=== PATIENT | female | born 1990 | race Hispanic/Latino ===

== ENCOUNTER 2019-08-01 08:18 | Emergency (ER) | payer SELFPAY ==
[2019-08-01] MEDS ORDERED: ONDANSETRON 4 MG/2 ML VIAL ONE (08:59)
[2019-08-01] MEDS ORDERED: MORPHINE 2 MG/ML SYR ONE (08:59)
[2019-08-01 09:10] LABS: Absolute Lymphocytes (CBC) 2.1 K/uL (0.7-4.9); Basophils % 0.6 % (0-1.3); Hematocrit 39.6 % (36.0-45.0); Lymphocytes % 17.2 % (15.3-44.8); RBC Red Blood Cell Count 4.56 M/uL (3.86-4.86)
--- NOTE | 2019-08-01 09:41 | RAD REPORT ---
EXAM DESCRIPTION: CT - Facial Bones W Con Mpr - 08/01/2019 9:15 am CLINICAL HISTORY: Right-sided facial pain and swelling, possible tooth infection COMPARISON: None. TECHNIQUE: Axial 3 mm thick images of the paranasal sinuses were obtained. Coronal reformatted image s were reviewed. All CT scans are performed using dose optimization technique as appropriate and may include automated exposure control or mA/KV adjustment according to patient size. FINDINGS: Dental decay is present in the posterior right molars. There is lucency around the roots o f involve molar with thinning and probable disruption of the lateral cortex of the mandible. Left mol ar dental decay is evident without bone involvement. Edematous changes are present in the soft tissue s adjacent to the involved right molar. No abscess or drainable fluid collection. No abnormal air in the soft tissues. No abnormal lymphadenopathy. No globe or orbital content abnormality. The parotid and submandibular glands are unremarkable. No ph aryngeal abnormality seen. No tonsil or tongue base abnormality seen. IMPRESSION: Dental decay is present in the right first molar of the mandible. There is lucency aroun d the roots of this molar and disruption of the lateral cortical wall of the mandible. Edema and stranding are present in the soft tissues adjacent to the involved molar. No abscess or clinton inable fluid collection.
--- NOTE | 2019-08-01 09:43 | RAD REPORT ---
EXAM DESCRIPTION: CT - Soft Tissue Neck W/Contr - 08/01/2019 9:15 am CLINICAL HISTORY: jaw swelling COMPARISON: No comparisons TECHNIQUE: During dynamic enhancement using 100 milliliters nonionic IV contrast, axial 5 millimeter thick images of the neck were obtained. All CT scans are performed using dose optimization technique as appropriate and may include automated exposure control or mA/KV adjustment according to patient size. FINDINGS: Intracranial portion of the exam is unremarkable. Globes and orbits are mostly obscured. M astoid air cells are clear. Partially imaged paranasal sinuses are clear. No pharyngeal mucosal mass or asymmetry. No tonsillar or tongue base abnormality. Epiglottis and voca l cords are normal. The parotid, submandibular and thyroid gland tissues are normal. Small reactive t ype nodes are seen in the right-side neck soft tissues. Dental decay is evident in the posterior right molars. These findings are detailed on separate report . IMPRESSION: Soft tissue neck examination shows no significant or suspicious finding. Right mandible dental decay findings are detailed in separate report.
--- NOTE | 2019-08-01 09:55 | ER ---
Nurse's Notes [facility] Name: Shereen Murphy Age: 28 yrs Sex: Female : 1990 Arrival Date: 08/01/2019 Time: 08:22 Bed 14 Private MD: Diagnosis: Dental caries Presentation: 07/31 08:35 Chief complaint: Right sided facial swelling and pain x 3 days. Coronavirus screen: hb Proceed with normal triage. Ebola Screen: No symptoms or risks identified at this time. Initial Sepsis Screen: Does the patient meet any 2 criteria? No. Patient's initial sepsis screen is negative. Does the patient have a suspected source of infection? No. Patient's initial sepsis screen is negative. Risk Assessment: Do you want to hurt yourself or someone else? Patient reports no desire to harm self or others. Onset of symptoms was July 30, 2019. 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 - Social history:: Smoking status: Patient reports the use of cigarette tobacco products, denies chronic smoking, but will smoke occasionally. Screenin:37 Abuse screen: Denies threats or abuse. Denies injuries from another. Nutritional hb screening: No deficits noted. Tuberculosis screening: No symptoms or risk factors identified. Fall Risk None identified. Assessment: 08:55 General: Appears in no apparent distress. uncomfortable, well groomed, well developed, sv Behavior is calm, cooperative, appropriate for age. Pain: Complains of pain in right cheek and right mandible Pain currently is 8 out of 10 on a pain scale. Quality of pain is described as tender, throbbing, Is continuous. Neuro: Level of Consciousness is awake, alert, obeys commands, Oriented to person, place, time, situation, Moves all extremities. Full function Gait is steady, Speech is normal. Respiratory: Airway is patent Respiratory effort is even, unlabored, Respiratory pattern is regular, symmetrical. Derm: Skin is intact, Skin is pink, warm \T\ dry. Musculoskeletal: Range of motion: intact in all extremities, Swelling present in right cheek and right mandible. 09:46 Reassessment: Patient appears in no apparent distress at this time. No changes from sv previously documented assessment. Patient and/or family updated on plan of care and expected duration. Pain level reassessed. Patient is alert, oriented x 3, equal unlabored respirations, skin warm/dry/pink. 10:35 Reassessment: Patient appears in no apparent distress at this time. No changes from sv previously documented assessment. Patient and/or family updated on plan of care and expected duration. Pain level reassessed. Patient is alert, oriented x 3, equal unlabored respirations, skin warm/dry/pink. Vital Signs: 08:35 BP 142 / 86; Pulse 80; Resp 16; Temp 98; Pulse Ox 99% ; Weight 90.72 kg; Height 4 ft. 9 hb in. (144.78 cm); Pain 8/10; 09:45 BP 143 / 83; Pulse 79; Resp 16; Pulse Ox 100% ; sv 10:30 BP 137 / 80; Pulse 77; Resp 16; Pulse Ox 99% ; sv 08:35 Body Mass Index 43.28 (90.72 kg, 144.78 cm) hb ED Course: 08:22 Patient arrived in ED. as 08:25 Primo Navarro PA is PHCP. jmm 08:25 John Hunt MD is Attending Physician. jmm 08:31 Lindsay Hinson, ANTELMO is Primary Nurse. sv 08:36 Triage completed. hb 08:36 Arm band placed on. hb 08:37 Patient has correct armband on for positive identification. Bed in low position. Call light in reach. 09:00 Inserted saline lock: 20 gauge in right forearm, using aseptic technique. Blood sv collected. Flushed right forearm with 5 ml normal saline. 09:22 CT Facial Bones W/ Con \T\ Mpr In Process Unspecified. EDMS 09:22 Soft Tissue Neck W/Contr CT In Process Unspecified. EDMS 10:35 No provider procedures requiring assistance completed. IV discontinued, intact, sv bleeding controlled, No redness/swelling at site. Pressure dressing applied. Administered Medications: 09:00 Drug: Zofran (Ondansetron) 4 mg Route: IVP; Site: right forearm; sv 10:00 Follow up: Response: No adverse reaction sv 09:02 Drug: morphine 2 mg Route: IVP; Site: right forearm; sv 10:00 Follow up: Response: No adverse reaction; Marked relief of symptoms; Pain is decreased; sv RASS: Alert and Calm (0) Outcome: 09:54 Discharge ordered by MD. livingston 10:35 Patient left the ED. hb 10:35 Discharged to home ambulatory. sv 10:35 Condition: stable 10:35 Discharge instructions given to patient, Instructed on discharge instructions, follow up and referral plans. medication usage, Demonstrated understanding of instructions, follow-up care, medications, Prescriptions given X 2. Signatures: Dispatcher [employer] Lindsay Spangler, RN RN Primo Mejia PA PA jmm Martinez, Amelia as Baxter, Heather, RN RN
--- NOTE | 2019-08-01 09:55 | EDPHYS ---
Physician Documentation [facility] Name: Shereen Murphy Age: 28 yrs Sex: Female : 1990 Arrival Date: 08/01/2019 Time: 08:22 Bed 14 Private MD: John Vyas HPI: 07/31 08:28 This 28 yrs old Female presents to ER via Ambulatory with complaints of Facial jmm Swelling. 08:28 The patient presents with pain, swelling. Onset: The symptoms/episode began/occurred jmm gradually, 3 day(s) ago. Duration: The symptoms are continuous. Modifying factors: The symptoms are alleviated by nothing, the symptoms are aggravated by nothing. Associated signs and symptoms: Pertinent positives: pain, swelling, Pertinent negatives: fever. The patient has experienced a previous episode. 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 - Social history:: Smoking status: Patient reports the use of cigarette tobacco products, denies chronic smoking, but will smoke occasionally. ROS: 08:28 Constitutional: Negative for fever, chills, and weight loss, Cardiovascular: Negative jmm for chest pain, palpitations, and edema, Respiratory: Negative for shortness of breath, cough, wheezing, and pleuritic chest pain. 08:28 ENT: Positive for dental pain. 08:28 All other systems are negative. Exam: 08:28 Constitutional: This is a well developed, well nourished patient who is awake, alert, jmm and in no acute distress. 08:28 Eyes: EOMI, no conjunctival erythema appreciated ENT: Moist Mucus Membranes Neck: Trachea midline, Supple Chest/axilla: Normal chest wall appearance and motion. Cardiovascular: Regular rate and rhythm. No edema appreciated Respiratory: Normal respirations, no respiratory distress appreciated Abdomen/GI: Non distended, soft Back: Normal ROM Skin: General appearance color normal MS/ Extremity: Moves all extremities, no obvious deformities appreciated, no edema noted to the lower extremities Neuro: Awake and alert, normal gait Psych: Behavior is normal, Mood is normal, Patient is cooperative and pleasant 08:28 Head/face: Noted is diffuse right sided facial pain on palpation. Vital Signs: 08:35 BP 142 / 86; Pulse 80; Resp 16; Temp 98; Pulse Ox 99% ; Weight 90.72 kg; Height 4 ft. 9 hb in. (144.78 cm); Pain 8/10; 09:45 BP 143 / 83; Pulse 79; Resp 16; Pulse Ox 100% ; sv 10:30 BP 137 / 80; Pulse 77; Resp 16; Pulse Ox 99% ; sv 08:35 Body Mass Index 43.28 (90.72 kg, 144.78 cm) hb MDM: 08:28 Patient medically screened. andrew 09:53 Data reviewed: vital signs, nurses notes. Counseling: I had a detailed discussion with yara the patient and/or guardian regarding: the historical points, exam findings, and any diagnostic results supporting the discharge/admit diagnosis, lab results, the need for outpatient follow up, to return to the emergency department if symptoms worsen or persist or if there are any questions or concerns that arise at home. ED course: imaging studies negative. patient is advised to follow up with dentist for reevaluation. patient is otherwise given strict return precautions. patient understood and agrees with the plan of care. . 07/31 08:38 Order name: CBC with Diff; Complete Time: 09:18 [facility] 07/31 08:38 Order name: CT Facial Bones W/ Con \T\ Mpr; Complete Time: 09:49 [facility] 07/31 08:38 Order name: Soft Tissue Neck W/Contr CT; Complete Time: 09:49 [facility] 07/31 08:38 Order name: Urine Test (obtain specimen); Complete Time: 08:49 [facility] 07/31 08:38 Order name: Saline Lock; Complete Time: 09:05 [facility] Administered Medications: 09:00 Drug: Zofran (Ondansetron) 4 mg Route: IVP; Site: right forearm; sv 10:00 Follow up: Response: No adverse reaction sv 09:02 Drug: morphine 2 mg Route: IVP; Site: right forearm; sv 10:00 Follow up: Response: No adverse reaction; Marked relief of symptoms; Pain is decreased; sv RASS: Alert and Calm (0) Disposition: 15:43 Co-signature as Attending Physician, John Hunt MD I agree with the assessment and [facility] plan of care. Disposition: 08/01/19 09:54 Discharged to Home. Impression: Dental caries. - Condition is Stable. - Discharge Instructions: Dental Pain. - Prescriptions for Amoxicillin 875 mg Oral Tablet - take 1 tablet by ORAL route every 12 hours for 10 days; 20 tablet. Ultracet 37.5- 325 mg Oral Tablet - take 1 tablet by ORAL route every 6 hours - for up to 5 days; do not exceed 8 tablets per day.; 12 tablet. - Work release form, Medication Reconciliation Form, Thank You Letter, Antibiotic Education, Prescription Opioid Use form. - Follow up: Private Physician; When: 2 - 3 days; Reason: Recheck today's complaints, Continuance of care, Re-evaluation by your physician. Signatures: Dispatcher [employer] Lindsay Spangler, RN John Abernathy MD MD cha Mickail, Joel, PA PA Melva Kessler RN RN hb Corrections: (The following items were deleted from the chart) 10:35 09:54 08/01/2019 09:54 Discharged to Home. Impression: Dental caries. Condition is hb Stable. Forms are Medication Reconciliation Form, Thank You Letter, Antibiotic Education, Prescription Opioid Use. Follow up: Private Physician; When: 2 - 3 days; Reason: Recheck today's complaints, Continuance of care, Re-evaluation by your physician. yara
[2019-08-01 10:49] VITALS: TEMP 98
[2019-08-01 10:51] VITALS: BP 143/83; O2SAT 100
== END 2019-08-01 10:35 | disposition home or self-care (01) ==
LOC: ER 08:18
DX: K02.9 Dental caries, unspecified (principal); F17.210 Nicotine dependence, cigarettes, uncomplicated
CPT/HCPCS: 36415; 70487; 70491; 76377; 85025; 96374; 96375; 99284; J2270; J2405; Q9967

== ENCOUNTER 2021-11-01 07:39 | Emergency (ER) | payer OTHER, SELFPAY ==
--- OUTSIDE RECORDS SUMMARY | 2021-11-01 07:43 | XMS REPORT | Continuity of Care Document ---
:1990 Author Organization [facility] t Address [address] [place] [address] Care Team Providers Name Role Phone Pcp, Patient Does Not Have A Primary Care Physician [id number] SYSTEM, PROVIDER NOT IN Attending Clinician Unavailable Kaylyn Farrell PA-C Attending Clinician Melly Nuñez PA-C Attending Clinician MELLY NUÑEZ Attending Clinician Unavailable GULSHAN AZUL Attending Clinician Unavailable GULSHAN AZUL Attending Clinician Unavailable Payers Payer Name Policy Type Policy Number Effective Date Expiration Date S ource Problems Condition Condition Condition Status Onset Resolution Last Treating Co mments Source Name Details Category Date Date Treatment Clinician Date Vaginal Vaginal Disease Active Univers bleeding bleeding 5-01 ity of 00:00: [place] 00 Medical Branch ALIS III ALIS III Disease Active Overview: Univ ers (cervical (cervical 3-30 Formattin i ty of intraepith intraepith 00:00: g of this [place] elial elial 00 note Medical neoplasia neoplasia might be Br anch grade III) grade III) different with with from the severe severe original. 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 ICD10 Diagnosis Term Media Assistant Utility Morbid Morbid Disease Active Univers obesity obesity ity of [facility] [place] [facility] Allergies, Adverse Reactions, Alerts Allergy Allergy Status Severity Reaction(s) Onset Inactive Treating Comm ents Source Name Type Date Date Clinician Aspirin Propensi Active Hives Univers ty to 3-20 ity of adverse 00:00: [place] reaction 00 Medical s Branch ASPIRIN DRUG Active Hives Univers INGREDI 3-20 ity of 00:00: [place] 00 Medical Branch Social History Social Habit Start Date Stop Date Quantity Comments Source History SDOH University o f Alcohol Frequency [place] M edical [facility] History SDOH University o f Alcohol Std [place] Medical Drinks Branch History SDOH University o f Alcohol Binge [place] [facility] al Branch History of Cigarette Smoker Universi ty of tobacco use [facility] [place] [facility] Exposure to 2021-06-05 2021-06-15 Not sure University of SARS-CoV-2 00:00:00 11:55:00 [facility] (event) Branch Tobacco Comment 2021-06-15 2021-06-15 quit 1 years ago Uni versity of 00:00:00 00:00:00 [facility] Alcohol intake 2021-06-15 2021-06-15 Current drinker Unive rsity of 00:00:00 00:00:00 of alcohol [facility] (finding) Branch Tobacco use and 2021-05-06 2021-05-06 Never used Universit y of exposure 00:00:00 00:00:00 [facility] Alcohol Comment 2012-05-30 2012-05-30 social drinking Univ ersity of 00:00:00 00:00:00 [facility] Sex Ass[birth year] Universit y of 00:00:00 00:00:00 [facility] Smoking Status Start Date Stop Date Source Former smoker 2021-05-06 00:00:00 2021-05-06 00:00:00 [facility] Medications Ordered Filled Start Stop Current Ordering Indication Dosage Frequency Signature Comments Components Source Medication Medication Date Date Medication? Clinician (SIG) Name Name ibuprofen Yes [id number] 600mg Take 1 Univers 600 mg 4-20 9102 tablet by ity of tablet 00:00: mouth [place] 00 every 6 Medical (six) Branch hours as needed for Pain (scale 4-6). ibuprofen Yes [id number] 600mg Take 1 Univers 600 mg 4-20 9102 tablet by ity of tablet 00:00: mouth [place] 00 every 6 Medical (six) Branch hours as needed for Pain (scale 4-6). ibuprofen Yes [id number] 600mg Take 1 Univers 600 mg 4-20 9102 tablet by ity of tablet 00:00: mouth [place] 00 every 6 Medical (six) Branch hours as needed for Pain (scale 4-6). Immunizations Ordered Filled Immunization Date Status Comments Sour e Immunization Name Name TDAP 2012-02-29 Completed University of 00:00:00 [facility] [place] [facility] TDAP 2012-02-29 Completed University of 00:00:00 [facility] [place] [facility] TDAP 2012-02-29 Completed University of 00:00:00 [facility] 2006-05-07 Completed University of 00:00:00 [facility] 2006-05-07 Completed University of 00:00:00 [facility] 2006-05[facility]07 [facility]00 [facility] [place] [facility] Procedures This patient has no known procedures. Encounters Start End Encounter Admission Attending Care Care Encounter Source Date/Time Date/Time Type Type Clinicians Facility Department ID 2021-05-15 Outpatient SYSTEM, [facility] [id number] 10:06:32 PROVIDER Richard o n 2021-07-30 2021-07-30 Telemedici Kaylyn Farrell [facility] [id number] Univers 11:45:00 12:00:00 ne Visit Melly Nuñez [facility] [id number] ity of [id number] [id number] [facility] 096 Branch 2021-07-30 2021-07-30 Outpatient R SAVANNAH [facility] [id number] Univers 11:45:00 11:45:00 MELLY gail [facility] 2021-07-30 2021-07-30 Telephone JOSEY Farrell [id number] Univers 00:00:00 00:00:00 Kaylyn [facility] [id number] i ty [id number] [id number] [address] 2021-07-08 2021-07-08 Outpatient GULSHAN AARON [facility] [id number] Univers 11:00:00 11:00:00 GULSHAN AZUL [facility] 2021-07-08 2021-07-08 Telephone RICKIE Nuñez [id number] Univers 00:00:00 00:00:00 Melly HE[facility] [id number] i [id number] [id number] [address] Results This patient has no known results.
[2021-11-01 08:13] LABS: Urine Blood Negative (Negative); Urine Glucose 1+ (Negative); Urine Protein 1+ (Negative); Urine Specific Gravity >=1.030 (1.005-1.030); Urine pH 5.5 (5.0-7.0)
--- NOTE | 2021-11-01 10:11 | RAD REPORT ---
EXAM DESCRIPTION: Luis Single View11/01/2021 9:03 am CLINICAL HISTORY: cough COMPARISON: none FINDINGS: The lungs appear clear of acute infiltrate. The heart is normal size IMPRESSION: No acute abnormalities displayed
--- NOTE | 2021-11-01 10:18 | ER ---
Nurse's Notes [facility] Name: Shereen Murphy Age: 30 yrs Sex: Female : 1990 Arrival Date: 11/01/2021 Time: 07:42 Bed 13 Private MD: Diagnosis: Acute bronchitis, unspecified Presentation: 11/01 07:46 Chief complaint: Patient states: cough, headache, SOB, congestion, started yesterday , iw no fever. Coronavirus screen: Client presents with at least one sign or symptom that may indicate coronavirus-19. Ebola Screen: Patient negative for fever greater than or equal to 101.5 degrees Fahrenheit, and additional compatible Ebola Virus Disease symptoms Patient denies exposure to infectious person. Patient denies travel to an Ebola-affected area in the 21 days before illness onset. No symptoms or risks identified at this time. Risk Assessment: Do you want to hurt yourself or someone else? Patient reports no desire to harm self or others. Onset of symptoms was October 31, 2021. 07:46 Method Of Arrival: Ambulatory iw 07:46 Acuity: CARLY 3 iw 08:00 Initial Sepsis Screen: Does the patient meet any 2 criteria? No. Patient's initial iw sepsis screen is negative. Does the patient have a suspected source of infection? No. Patient's initial sepsis screen is negative. Triage Assessment: 07:50 General: Appears in no apparent distress. uncomfortable, obese, Behavior is calm, bp cooperative, appropriate for age. Pain: Complains of pain in face. EENT: Nares with drainage noted Reports nasal congestion. Neuro: No deficits noted. Cardiovascular: No deficits noted. Respiratory: Reports shortness of breath cough that is Onset: The symptoms/episode began/occurred at an unknown time. the patient has mild shortness of breath. GI: No signs and/or symptoms were reported involving the gastrointestinal system. : No signs and/or symptoms were reported regarding the genitourinary system. Derm: No deficits noted. Musculoskeletal: No deficits noted. 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 - Social history:: Smoking status: unknown. Screenin:00 Abuse screen: Denies threats or abuse. Denies injuries from another. Nutritional bp screening: No deficits noted. Tuberculosis screening: No symptoms or risk factors identified. Fall Risk None identified. Assessment: 07:50 General: SEE TRIAGE NOTE. bp 09:00 Cardiovascular: Rhythm is sinus rhythm. Respiratory: Airway is patent Respiratory bp effort is even, unlabored, Breath sounds are clear bilaterally. 10:00 Reassessment: No changes from previously documented assessment. Patient and/or family bp updated on plan of care and expected duration. Pain level reassessed. Vital Signs: 07:48 BP 157 / 94; Pulse 99; Resp 16; Temp 97.6; Pulse Ox 99% on R/A; Weight 103.87 kg; bp Height 4 ft. 10 in. (147.32 cm); 10:00 BP 138 / 77; Pulse 89; Resp 16; Pulse Ox 98% ; bp 07:48 Body Mass Index 47.86 (103.87 kg, 147.32 cm) bp ED Course: 07:42 Patient arrived in ED. as 07:42 Lindsay Leon MD is Attending Physician. sd2 07:47 Triage completed. iw 07:48 Arm band placed on. iw 07:51 Jose A Mcmillan, RN is Primary Nurse. bp 08:00 Patient has correct armband on for positive identification. Bed in low position. Call bp light in reach. Side rails up X2. 09:05 CXR XRAY In Process Unspecified. EDMS 10:51 No provider procedures requiring assistance completed. Patient did not have IV access iw during this emergency room visit. Administered Medications: No medications were administered Medication: 10:52 VIS not applicable for this client. iw Outcome: 10:17 Discharge ordered by . sd2 10:50 Condition: good iw 10:51 Discharged to home ambulatory. iw 10:51 Discharge instructions given to patient, Instructed on discharge instructions, follow up and referral plans. Demonstrated understanding of instructions, follow-up care, medications, Prescriptions given X 4. 10:52 Patient left the ED. iw Signatures: Dispatcher [employer] EDMS Lisa Hodgson Irene, RN RN iw Jose A Mcmillan, Lindsay Vaughn RN, MD MD sd2 Corrections: (The following items were deleted from the chart) 07:55 07:48 BP 157 / 94; Pulse 99bpm; Resp 16bpm; Pulse Ox 99% RA; 103.87 kg; Height 4 ft. 10 bp in.; BMI: 47.8; iw
--- NOTE | 2021-11-01 10:18 | EDPHYS ---
Physician Documentation [facility] Name: Shereen Murphy Age: 30 yrs Sex: Female : 1990 Arrival Date: 11/01/2021 Time: 07:42 Bed 13 Private MD: ED Physician Lindsay Leon HPI: 11/01 07:56 This 30 yrs old Female presents to ER via Ambulatory with complaints of Cough, sd2 Shortness Of Breath, Sinus Congestion, Headache. 07:56 30-year-old female with no known past medical history presents with chief complaint of sd2 cough, shortness of breath, sinus congestion and headache. She denies any associated fevers or recent sick contacts but she works at the [employer] and comes in contact with multiple people at a time. She has not been flu or COVID vaccinated. She denies any chest pain and has been taking [employer] brand chest and cough medication with no relief. Her symptoms started last night. She otherwise denies any acute complaints at this time.. 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 - Social history:: Smoking status: unknown. ROS: 07:56 Constitutional: Negative for fever, chills, and weight loss, Eyes: Negative for injury, sd2 pain, redness, and discharge, ENT: Negative for injury, pain, and discharge, Cardiovascular: Negative for chest pain, palpitations, and edema. 07:56 Abdomen/GI: Negative for abdominal pain, nausea, vomiting, diarrhea. MS/Extremity: Negative for injury and deformity, Skin: Negative for injury, rash, and discoloration. 07:56 Respiratory: Positive for cough, with no reported sputum, shortness of breath. 07:56 Neuro: Positive for headache, Negative for altered mental status, weakness. Exam: 07:56 Constitutional: This is a well developed, well nourished patient who is awake, alert, sd2 and in no acute distress. 07:56 Head/Face: Normocephalic, atraumatic. Eyes: EOMI, normal conjunctiva bilaterally ENT: Nares patent. No nasal discharge, no septal abnormalities noted. Oropharynx with no redness, swelling, or masses, exudates, or evidence of obstruction, uvula midline. Mucous membranes moist. Chest/axilla: Normal chest wall appearance and motion. Nontender with no deformity. Cardiovascular: Regular rate and rhythm with a normal S1 and S2. No gallops, murmurs, or rubs. 2+ distal pulses. Respiratory: Lungs have equal breath sounds bilaterally, clear to auscultation, occasional bronchospastic cough noted. No rales, rhonchi noted. No increased work of breathing, no retractions or nasal flaring. Abdomen/GI: Soft, non-tender, with normal bowel sounds. No guarding or rebound. No evidence of tenderness throughout. Skin: Warm, dry with normal turgor. Normal color with no rashes, no lesions, and no evidence of cellulitis. MS/ Extremity: Pulses equal, no cyanosis. Neurovascular intact. Full, normal range of motion. Ambulatory without difficulty. Psych: Awake, alert, with orientation to person, place and time. Behavior, mood, and affect are within normal limits. 07:56 Head/face: Noted is Vital Signs: 07:48 BP 157 / 94; Pulse 99; Resp 16; Temp 97.6; Pulse Ox 99% on R/A; Weight 103.87 kg; bp Height 4 ft. 10 in. (147.32 cm); 10:00 BP 138 / 77; Pulse 89; Resp 16; Pulse Ox 98% ; bp 07:48 Body Mass Index 47.86 (103.87 kg, 147.32 cm) bp MDM: 07:51 Patient medically screened. sd2 07:56 Differential Diagnosis: Other DIfferential diagnosis includes but is not limited to: sd2 Viral URI, acute otitis media, acute otitis externa, pneumonia, UTI, COVID, flu, herpangina among others. Data reviewed: vital signs, nurses notes. Medical screen evaluation completed. EMTALA emergency medical condition absent. 11/01 07:55 Order name: SARS-COV-2 RT PCR (Document "Date of Onset" if Symptomatic); Complete Time: bp 09:20 11/01 07:55 Order name: Flu; Complete Time: 08:28 bp 11/01 07:55 Order name: Rapid Strep; Complete Time: 08:28 bp 11/01 07:55 Order name: CXR XRAY; Complete Time: 10:15 bp 11/01 08:13 Order name: Urine Dipstick-Ancillary; Complete Time: 08:20 EDMD 11/01 08:29 Order name: Throat Culture [facility] 11/01 08:02 Order name: Urine Test (obtain specimen); Complete Time: 08:20 sd2 Administered Medications: No medications were administered Disposition Summary: 11/01/21 10:17 Discharge Ordered Location: Home sd2 Problem: new sd2 Symptoms: are unchanged sd2 Condition: Stable sd2 Diagnosis - Acute bronchitis, unspecified sd2 Followup: sd2 - With: Private Physician - When: 2 - 3 days - Reason: Recheck today's complaints, Continuance of care, Re-evaluation by your physician Discharge Instructions: - Discharge Summary Sheet sd2 - Acute Bronchitis, Adult sd2 - Viral Respiratory Infection, [id number] sd2 Forms: - Medication Reconciliation Form sd2 - Thank You Letter sd2 - Antibiotic Education sd2 - Prescription Opioid Use sd2 - Work release form iw Prescriptions: - albuterol sulfate 90 mcg/actuation Inhalation HFA aerosol inhaler - inhale 2 puff by INHALATION route every 4-6 hours; 1 Inhaler; Refills: 0, sd2 Product Selection Permitted - Zithromax Z-David 250 mg Oral Tablet - take 1 tablet by ORAL route as directed for 5 days Day 1 - take two (2) tablets sd2 one time. Day 2, 3, 4 , 5 take one (1) tablet once daily.; 6 tablet; Refills: 0, Product Selection Permitted - Prednisone 20 mg Oral Tablet - take 2 tablets by ORAL route once daily for 5 days; 10 tablet; Refills: 0, sd2 Product Selection Permitted - Guaifenesin AC 10-100 mg/5 mL Oral Liquid - take 10 milliliters by ORAL route every 4 hours As needed; 240 milliliter; sd2 Refills: 0, Product Selection Permitted Signatures: Dispatcher [employer] Ivana Brothers RN RN iw Dunlop, Stephanie, MD MD sd2
[2021-11-02 19:29] VITALS: TEMP 97.6
[2021-11-02 19:31] VITALS: BP 138/77; O2SAT 98
== END 2021-11-01 10:52 | disposition home or self-care (01) ==
LOC: ER 07:39
DX: J20.9 Acute bronchitis, unspecified (principal); Z20.822 Contact with and (suspected) exposure to COVID-19
CPT/HCPCS: 87070; 87081; 81003; 87804 ×2; 71045; 99284; U0003